=== PATIENT | female | born 1990 | race Two or more races ===

== ENCOUNTER 2021-10-18 18:44 | Emergency (ER) | payer SELFPAY ==
[2021-10-18 18:52] VITALS: BP 150/94; PULSE 87; RESP 18; TEMP 36.3; O2SAT 100
--- NOTE | 2021-10-18 19:34 | ED.HEATRA ---
HPI - Head Injury General Chief complaint: Head Injury Stated complaint: head injury Time Seen by Provider: 10/18/21 19:33 Source: patient Mode of arrival: ambulatory Limitations: no limitations History of Present Illness HPI Narrative: Patient is a 30-year-old female with a history of solitary kidney presenting to the emergency department for evaluation of fever. Patient reports that she had a door in the dorm she was living in fall onto her head 4 days ago. Patient states that she has mild headache pain on the top of her head. She denies vision changes, significant neck pain or stiffness. She reports nausea without vomiting. She denies cough, rhinorrhea, congestion, sore throat, ear pain. Patient states that she has felt warm when she has headache pain, but denies any recorded fever. Patient has been taking a medication called PREMA which is an [place] medication that she brought with her from [place] when she [facility] into the [facility]. She denies focal weakness or numbness. No difficulty with speech. She denies any back pain. Patient denies dysuria or hematuria. Related Data Allergies Allergy/AdvReac Type Severity Reaction Status Date / Time No Known Allergies Allergy Verified 10/18/21 19:23 Review of Systems Review of Systems: CONSTITUTIONAL: Reports subjective fever without chills EYES: Denies visual changes, redness, or discharge. ENT: Denies rhinorrhea, congestion, sore throat, or otalgia. CARDIOVASCULAR: Denies chest pain, palpitations, or edema. RESPIRATORY: Denies cough or dyspnea. GASTROINTESTINAL: Denies abdominal pain, reports nausea without vomiting GENITOURINARY: Denies dysuria or hematuria. SKIN: Denies rash or itching. MUSCULOSKELETAL: Denies back pain, joint pain, or myalgia. NEUROLOGIC: Reports headache without focal numbness, or weakness. 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 No hematoma, laceration. No ecchymosis. EYES: PERRLA and EOMI. ENT: Nares clear, no rhinorrhea or epistaxis. Mucous membranes moist. No midline tenderness, no step-offs or deformities. NECK: Supple. CHEST: No respiratory distress, breathing even and non labored HEART: Regular rate, sinus rhythm ABDOMEN:Non distended, non tender EXTREMITIES: Normal range of motion. No edema. SKIN: Warm, dry, no rash. NEURO:No focal deficits. Alert and oriented x3. Finger to nose intact bilaterally. EOMs intact without nystagmus. No facial droop/asymmetry noted bilaterally. Grimace intact. Intact sensation in face. Hearing intact bilaterally. Shoulder shrug intact. Strength 5/5 bilateral upper extremities. Strength 5/5 bilateral lower extremities. Reflexes 2+ patellar. Heel to louise intact bilaterally. Ambulatory exam deferred. Course Vital Signs Vital signs: Vital Signs Temperature 36.3 C L 10/18/21 18:52 Pulse Rate 87 10/18/21 18:52 Respiratory Rate 18 10/18/21 18:52 Blood Pressure 150/94 H 10/18/21 18:52 Pulse Oximetry 100 10/18/21 18:52 Oxygen Delivery Room Air 10/18/21 18:52 Temperature 36.3 C L 10/18/21 18:52 Pulse Rate 87 10/18/21 18:52 Respiratory Rate 18 10/18/21 18:52 Blood Pressure 150/94 H 10/18/21 18:52 Pulse Oximetry 100 10/18/21 18:52 Oxygen Delivery Room Air 10/18/21 19:31 MDM - Head Injury MDM Narrative Medical decision making narrative: Patient presented for evaluation of headache pain and reported subject
--- NOTE | 2021-10-18 20:30 | PC.NURSE ---
Patient refuses all care at this time. She is concerned about the billing and what the cost of imaging and lab may be. MD aware. Patient spoke with registration who provided her information for the financial counselor. Patient encouraged to stay for medical workup and evaluation but patient continues to refuse care. S/S warranting return to the ED discussed with patient. Verbal understanding given.
== END 2021-10-18 20:57 | disposition home or self-care (01) ==
LOC: ANHED 20:27
PROVIDERS: Emergency Provider Emergency Medicine
DX: R51.9 Headache, unspecified (principal); Q60.0 Renal agenesis, unilateral; Z87.442 Personal history of urinary calculi
CPT/HCPCS: 99283

== ENCOUNTER 2022-01-06 00:38 | Emergency (ER) | payer OTHER, SELFPAY ==
[2022-01-06 00:50] VITALS: BP 136/85; PULSE 79; RESP 18; TEMP 36.5; O2SAT 100
[2022-01-06 02:40] LABS: Appearance Urine Cloudy (Clear); Bilirubin Urine Negative (Negative); Blood Urine Negative (Negative); Color Urine Yellow (Yellow); Glucose Urine UA Negative (Negative); Ketones Urine Negative (Negative); Leukocyte Esterase Ur Negative LEU/UL (Negative); Nitrate Urine Negative (Negative); Protein Urine Negative (Negative); Specific Grav Ur >= 1.030 (1.001-1.035); Urobilinogen Urine 0.2 mg/dL (<2.0); pH Urine 5.5 (5.0-9.0)
[2022-01-06 02:59] LABS: Bacteria Urine Trace /hpf; Mucus Urine Few /lpf; RBC Urine 0-2 /hpf (0-2); Squamous Epithelial Cell Urine Many /hpf (Few); WBC Urine 0-3 /hpf
[2022-01-06 03:04] LABS: Add Urine Microscopic? NO
[2022-01-06 03:17] LABS: Influenza A QL RT-PCR Negative (Negative); Influenza B QL RT-PCR Negative (Negative); SARS-CoV-2 RNA PCR Negative
[2022-01-06 03:45] VITALS: BP 135/95; PULSE 48; RESP 16; O2SAT 96
--- NOTE | 2022-01-06 03:47 | ED.FEVER ---
HPI - Fever General Chief Complaint: Fever Stated Complaint: fever Time Seen by Provider: 01/06/22 03:27 History of Present Illness HPI Narrative: 31-year-old female presenting to the emergency department for evaluation of 1 week of intermittent headache, intermittent nausea and vomiting. Patient states she has also had a subjective fever. Patient denies any current abdominal pain but states she does still have some nausea. Patient declined medications for nausea control. Patient denies any pain with urination. Related Data Allergies Allergy/AdvReac Type Severity Reaction Status Date / Time No Known Allergies Allergy Verified 01/06/22 03:25 Review of Systems Review of Systems: CONSTITUTIONAL: See HPI EYES: Denies visual changes, redness, or discharge. ENT: Denies rhinorrhea, congestion, sore throat, or otalgia. CARDIOVASCULAR: Denies chest pain, palpitations, or edema. RESPIRATORY: Denies cough or dyspnea. GASTROINTESTINAL: See HPI GENITOURINARY: Denies dysuria or hematuria. SKIN: Denies rash or itching. MUSCULOSKELETAL: Denies back pain, joint pain, or myalgia. 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 HEAD: normocephalic, atraumatic. EYES: PERRLA/EOMI, conjunctivae clear. NOSE: Normal no drainage EARS:TMS clear with good light reflex. THROAT: Pharynx clear, no exudate. NECK: Supple. No adenopathy, no masses. RESPIRATORY: Airway patent, respirations nonlabored. Clear to auscultation bilaterally, no rales, rhonchi, wheezing. CARDIOVASCULAR: Regular rate and rhythm without murmurs rubs or gallops. ABDOMINAL: Soft, nontender, nondistended, normal bowel sounds MUSCULOSKELETAL: Moves all extremities. Strength/ROM intact, No edema, No calf tenderness. NEURO: Alert. Cranial nerves II through XII intact. Grossly intact SKIN: Warm, dry. 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 UA shows no evidence of infection. Patient was negative for flu and COVID. Patient bilirubin and the results of the work-up. All question concerns were addressed. Patient was encouraged to have close follow-up with her primary care physician. Vital Signs Vital signs: Vital Signs Temperature 97.7 F 01/06/22 00:50 Pulse Rate 79 01/06/22 00:50 Respiratory Rate 18 01/06/22 00:50 Blood Pressure 136/85 01/06/22 00:50 Pulse Oximetry 100 01/06/22 00:50 Oxygen Delivery Room Air 01/06/22 00:50 Temperature 97.7 F 01/06/22 00:50 Pulse Rate 64 01/06/22 04:30 Respiratory Rate 16 01/06/22 04:30 Blood Pressure 118/84 01/06/22 04:30 Pulse Oximetry 100 01/06/22 04:15 Oxygen Delivery Room Air 01/06/22 00:50 MDM - Fever Lab Data Attestation: I reviewed the patient's lab results. Result diagrams: 01/06/22 03:59 01/06/22 03:59 Labs: Lab Results 01/06/22 01/06/22 01/06/22 Range/Units 02:08 02:08 03:59 WBC 8.7 (4.5-10.0) K/mm3 RBC 4.55 (4.2-5.4) M/mm3 Hgb 13.1 (12.0-15.0) g/dL Hct 39.3 (37.0-47.0) % MCV 86.4 (80-100) fl MCH 28.8 (26-34) pg MCHC 33.3 (32-36) g/dl RDW 13.2 (11.5-14.5) % Plt Count 269 (150-375) k/mm3 MPV 10.1 (7.4-10.4) fl Immature Gran % (Auto) 0.2 (0-0.5) % Neut % (Auto) 71.2 (45.5-73.1) % Lymph % (Auto) 20.5 (18.3-44.2) % [place] % (Auto) 7.0 (2.6-8.5) % Eos % (Auto) 0.8 (0-4.4) % Baso % (Auto) 0.3 (0.2-1.2) % Lymph # (Aut
[2022-01-06 04:04] LABS: Basophils Percent Auto 0.3 % (0.2-1.2); Eosinophils Absolute Auto 0.1 K/mm3 (0-0.3); Eosinophils Percent Auto 0.8 % (0-4.4); Hematocrit 39.3 % (37.0-47.0); Hemoglobin 13.1 g/dL (12.0-15.0); Immature Granulocyte Absolute 0.02 K/mm3 (0.00-0.031); Immature Granulocyte Percent A 0.2 % (0-0.5); Lymphocytes Absolute Auto 1.79 K/mm3 (0.9-3.2); Lymphocytes Percent Auto 20.5 % (18.3-44.2); Mean Corpuscular HGB Conc 33.3 g/dl (32-36); Mean Corpuscular Hemoglobin 28.8 pg (26-34); Mean Corpuscular Volume 86.4 fl (80-100); Mean Platelet Volume 10.1 fl (7.4-10.4); Monocytes Absolute Auto 0.6 K/mm3 (0.1-0.6); Neutrophils Absolute Auto 6.2 K/mm3 (1.3-6.7); Neutrophils Percent Auto 71.2 % (45.5-73.1); Platelet Count Result 269 k/mm3 (150-375); Red Blood Count 4.55 M/mm3 (4.2-5.4); Red Cell Distribution Width 13.2 % (11.5-14.5); White Blood Count 8.7 K/mm3 (4.5-10.0)
[2022-01-06 04:14] LABS: Alanine Aminotransferase 23 U/L (6-35); Albumin Level 4.3 g/dL (3.5-5.1); Alkaline Phosphatase 69 U/L (38-126); Anion Gap 9 mmol/L (8-16); Aspartate Amino Transferase 20 U/L (14-36); Bilirubin,Total 0.5 mg/dL (0.2-1.3); Blood Urea Nitrogen 11 mg/dL (7-17); Calcium 8.9 mg/dL (8.4-10.2); Carbon Dioxide 25 mmol/L (22-30); Chloride 104 mmol/L (98-107); Estimated CRCL calculation 99 ml/min; Estimated Glomerular Filt Rate > 60; Glucose 117 mg/dL (65-110); Sodium 138 mmol/L (137-145)
[2022-01-06 04:15] VITALS: BP 121/84; PULSE 58; RESP 16; O2SAT 100
[2022-01-06 04:30] VITALS: BP 118/84; PULSE 64; RESP 16
== END 2022-01-06 04:38 | disposition home or self-care (01) ==
PROVIDERS: Emergency Provider Emergency Medicine
DX: B34.9 Viral infection, unspecified (principal); R51.9 Headache, unspecified; R11.0 Nausea; Z20.822 Contact with and (suspected) exposure to COVID-19; R82.998 Other abnormal findings in urine
CPT/HCPCS: 36415; 80053; 81003; 85025; 87086; 87636; 99283

== ENCOUNTER 2022-01-12 15:16 | Emergency (ER) | payer OTHER, SELFPAY ==
[2022-01-12 15:36] VITALS: BP 130/90; PULSE 89; RESP 16; TEMP 36.7; O2SAT 98
[2022-01-12 16:25] LABS: Influenza A QL RT-PCR Negative (Negative); Influenza B QL RT-PCR Negative (Negative); SARS-CoV-2 RNA PCR Negative
--- NOTE | 2022-01-12 19:40 | ED.GENADULT ---
HPI - General Adult General Chief complaint: Upper Respiratory Infection Stated complaint: FEVER,BODY ACHES Time Seen by Provider: 01/12/22 19:12 History of Present Illness HPI narrative: Patient is a 31-year-old female who presents the emergency department with chief complaint of fever body aches and generalized malaise. Patient states that for approximately 1 week she has been having body aches reports that she has had some headaches has had some nausea reports that the light bothers her eyes reports that she also developed a rash on her lower lip that she has never had before. The patient states that the rash is itchy and has a correlation of vesicles. Related Data Allergies Allergy/AdvReac Type Severity Reaction Status Date / Time No Known Allergies Allergy Verified 01/06/22 03:25 Review of Systems Review of Systems: A 10 system review of systems was completed on the patient and is negative except for what is stated in the HPI. Nursing and ancillary documentation was reviewed. 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 HEAD: Normocephalic, atraumatic. EYES: PERRLA and EOMI. ENT: Nares clear, no rhinorrhea or epistaxis. Mucous membranes moist. There is a vesicular rash present in the left lower NECK: Supple. No meningeal signs, full range of motion of neck without difficulty CHEST: Clear to auscultation. No respiratory distress. HEART: Regular rate and rhythm. No murmur heard. Normal peripheral pulses. ABDOMEN: Soft, nontender, nondistended, normal active bowel sounds. EXTREMITIES: Normal range of motion. No edema. SKIN: Warm, dry, no rash. NEURO: No focal deficits. Alert and oriented x3. PSYCH: Normal mood and affect. Course Vital Signs Vital signs: Vital Signs Temperature 36.7 C 01/12/22 15:36 Pulse Rate 89 01/12/22 15:36 Respiratory Rate 16 11/17/22 15:36 Blood Pressure 130/90 01/12/22 15:36 Pulse Oximetry 98 01/12/22 15:36 Temperature 36.7 C 01/12/22 15:36 Pulse Rate 89 01/12/22 15:36 Respiratory Rate 16 01/12/22 15:36 Blood Pressure 130/90 01/12/22 15:36 Pulse Oximetry 98 01/12/22 15:36 Medical Decision Making Vital Signs Vital Signs: Vital Signs Temperature 36.7 C 01/12/22 15:36 Pulse Rate 89 01/12/22 15:36 Respiratory Rate 16 01/12/22 15:36 Blood Pressure 130/90 01/12/22 15:36 Pulse Oximetry 98 01/12/22 15:36 Temperature 36.7 C 01/12/22 15:36 Pulse Rate 89 01/12/22 15:36 Respiratory Rate 16 01/12/22 15:36 Blood Pressure 130/90 01/12/22 15:36 Pulse Oximetry 98 01/12/22 15:36 Lab Data Labs: Lab Results 01/12/22 01/12/22 Range/Units 15:44 19:27 Urine Color Yellow (Yellow) Urine Appearance Slightly cloudy (Clear) Urine pH 6.0 (5.0-9.0) Ur Specific [place] 1.025 (1.001-1.035) Urine Protein Trace (Negative) mg/dL Urine Glucose (UA) Negative (Negative) mg/dL Urine Ketones Trace (Negative) mg/dL Ur Blood (Man) Negative (Negative) Urine Nitrate Negative (Negative) Urine Bilirubin 1+ H (Negative) Urine Urobilinogen 0.2 (<2.0) mg/dL Leukocyte Esterase Rfl Negative (Negative) CATRINA/UL Urine RBC 6-10 H (0-2) /hpf Urine WBC 4-6 H /hpf Ur Squamous Epith Cells Many H (Few) /hpf Urine Bacteria Trace /hpf Urine Mucus Rare /lpf Influenza A (RT-PCR) Negative (Negative) Influenza B (RT-PCR) Negative (Negative) SARS-CoV-2 RNA (RT-P
[2022-01-12 19:42] LABS: Appearance Urine Slightly Cloudy (Clear); Bilirubin Urine 1+ (Negative); Blood Urine Negative (Negative); Color Urine Yellow (Yellow); Glucose Urine UA Negative (Negative); Ketones Urine Trace mg/dL (Negative); Leukocyte Esterase Ur Negative LEU/UL (Negative); Nitrate Urine Negative (Negative); Protein Urine Trace mg/dL (Negative); Specific Grav Ur 1.025 (1.001-1.035); Urobilinogen Urine 0.2 mg/dL (<2.0)
[2022-01-12] MEDS: KETOROLAC 30 MG/ML VIAL (*BKC) IM (19:45)
[2022-01-12] MEDS: diphenhydrAMINE HCl CAP 25 MG CAPSULE PO (19:45)
[2022-01-12] MEDS: METOCLOPRAMIDE HCL 10 MG TABLET PO (19:45)
[2022-01-12 19:52] LABS: Bacteria Urine Trace /hpf; Mucus Urine Rare /lpf; Squamous Epithelial Cell Urine Many /hpf (Few)
[2022-01-12 19:54] LABS: Add Urine Microscopic? YES
[2022-01-12] MEDS: CEPHALEXIN 500 MG CAPSULE PO (20:19)
[2022-01-12] MEDS: valACYclovir HCL 500 MG TABLET 1000 MG PO (20:19)
[2022-01-12 20:23] VITALS: BP 141/92; PULSE 77; RESP 16; O2SAT 100
== END 2022-01-12 20:23 | disposition home or self-care (01) ==
PROVIDERS: Emergency Medicine; Emergency Provider Emergency Medicine
DX: B34.9 Viral infection, unspecified (principal); N39.0 Urinary tract infection, site not specified; B00.1 Herpesviral vesicular dermatitis; Z20.822 Contact with and (suspected) exposure to COVID-19
CPT/HCPCS: 81001; 81025; 87636; 96372; 99283; A9270; J1885

== ENCOUNTER 2022-01-23 06:41 | Emergency (ER) | payer OTHER, SELFPAY ==
--- NOTE | ~2022-01-23 | CT_ITS ---
EXAMINATION: CT abdomen pelvis w con DATE: 01/23/2022 09:13 INDICATION: Right abdominal pain. Right flank pain. TECHNIQUE: Computed tomography (CT) of the abdomen and pelvis was performed with 100 mL Omnipaque 350 intravenous contrast. Automated exposure control and iterative reconstruction technique were employe d. The dose-length product was 761.10 mGy-cm. COMPARISON: None. FINDINGS: The visualized portions of the lung bases are clear without pneumonia or pleural effusion. The heart size is normal. No pericardial effusion. The liver and spleen are normal. There are changes of cholecystectomy. The pancreas and adrenal glands and right kidney are normal. Left kidney is abse nt. The appendix is normal. There are no dilated loops of bowel. There are no pathologically enlarged lymph nodes. There is no free intraperitoneal fluid. There is mild lumbar spondylosis. IMPRESSION: 1. No etiology for the patient's symptoms. Reviewed, dictated and finalized at location A. CTOR OF PROVIDER RELATIONS
[2022-01-23 06:48] VITALS: BP 127/90; PULSE 79; RESP 18; TEMP 36.6; O2SAT 100
[2022-01-23] MEDS: SODIUM CHLORIDE 0.9% IV 1,000 ML 150 ML IV CONT (08:34)
[2022-01-23] MEDS: MORPHINE SULFATE (*CRX) 4 MG/ML INJ IV PUSH (08:35)
[2022-01-23 08:40] LABS: Basophils Percent Auto 0.3 % (0.2-1.2); Eosinophils Absolute Auto 0.1 K/mm3 (0-0.3); Eosinophils Percent Auto 0.7 % (0-4.4); Hematocrit 39.1 % (37.0-47.0); Hemoglobin 13.1 g/dL (12.0-15.0); Immature Granulocyte Absolute 0.03 K/mm3 (0.00-0.031); Immature Granulocyte Percent A 0.3 % (0-0.5); Lymphocytes Absolute Auto 1.61 K/mm3 (0.9-3.2); Lymphocytes Percent Auto 16.4 % (18.3-44.2); Mean Corpuscular HGB Conc 33.5 g/dl (32-36); Mean Corpuscular Hemoglobin 29.2 pg (26-34); Mean Corpuscular Volume 87.3 fl (80-100); Mean Platelet Volume 10.3 fl (7.4-10.4); Monocytes Absolute Auto 0.6 K/mm3 (0.1-0.6); Neutrophils Absolute Auto 7.5 K/mm3 (1.3-6.7); Neutrophils Percent Auto 76.3 % (45.5-73.1); Platelet Count Result 271 k/mm3 (150-375); Red Blood Count 4.48 M/mm3 (4.2-5.4); Red Cell Distribution Width 12.9 % (11.5-14.5); White Blood Count 9.8 K/mm3 (4.5-10.0)
[2022-01-23 08:41] LABS: Appearance Urine Clear (Clear); Bilirubin Urine Negative (Negative); Blood Urine 2+ (Negative); Color Urine Yellow (Yellow); Glucose Urine UA Negative (Negative); Ketones Urine Negative (Negative); Leukocyte Esterase Ur Negative LEU/UL (Negative); Nitrate Urine Negative (Negative); Protein Urine Negative (Negative); Specific Grav Ur >= 1.030 (1.001-1.035); Urobilinogen Urine 0.2 mg/dL (<2.0); pH Urine 5.5 (5.0-9.0)
[2022-01-23 08:45] LABS: Alanine Aminotransferase 21 U/L (6-35); Alkaline Phosphatase 78 U/L (38-126); Anion Gap 11 mmol/L (8-16); Aspartate Amino Transferase 32 U/L (14-36); Bilirubin,Total 0.3 mg/dL (0.2-1.3); Blood Urea Nitrogen 10 mg/dL (7-17); Calcium 8.8 mg/dL (8.4-10.2); Carbon Dioxide 23 mmol/L (22-30); Chloride 106 mmol/L (98-107); Estimated Glomerular Filt Rate > 60; Glucose 101 mg/dL (65-110); Lipase 106 U/L (23-300); Mucus Urine Rare /lpf; Potassium 4.4 mmol/L (3.4-5.0); Sodium 140 mmol/L (137-145); Squamous Epithelial Cell Urine Many /hpf (Few)
[2022-01-23 08:47] LABS: Add Urine Microscopic? YES
[2022-01-23 09:55] VITALS: BP 122/83; PULSE 79; RESP 14; O2SAT 99
[2022-01-23] MEDS: DICYCLOMINE HCL INJ 20 MG/2 ML VIAL IM (10:06)
--- NOTE | 2022-01-23 11:02 | ED.ABDPAIN ---
HPI - Abdominal Pain General Chief Complaint: Abdominal Pain Stated Complaint: Flank pain, right Time Seen by Provider: 01/23/22 07:38 Source: patient and family Mode of arrival: ambulatory Limitations: no limitations History of Present Illness HPI narrative: 31-year-old with a history of cholecystectomy , solitary kidney here with complaints of right-sided abdominal pain, headache on and off for past few days. Patient states that she was seen in the emergency room on January 06 for the same and was diagnosed with UTI and was prescribed Keflex and valacyclovir. However patient has not been taking the medication as she thinks the dosage was too much for her kidneys. She denies any fever or chills no history of nausea or vomiting. MD elicited complaint: abdominal pain Pertinent past history: none Onset (ago): day(s) (1) Pain Consistency: constant Location: RUQ and RLQ Severity: moderate Quality: aching Radiation: none Migration to: no migration Exacerbating factors: nothing Relieving factors: nothing Associated symptoms: denies other symptoms Related Data Allergies Allergy/AdvReac Type Severity Reaction Status Date / Time No Known Allergies Allergy Verified 01/06/22 03:25 Review of Systems Review of Systems: All systems reviewed & are unremarkable except as noted in HPI and below Constitutional: Constitutional: Reports no additional constitutional complaints Eyes: Eyes: Reports no additional eye complaints ENT: Reports system reviewed and no additional complaints, except as documented Cardiovascular: Cardiovascular: Reports no additional cardiovascular complaints Respiratory: Respiratory: Reports no additional respiratory complaints Gastrointestinal: Gastrointestinal: Reports as per HPI Genitourinary: Genitourinary: Reports no additional female genitourinary complaints Musculoskeletal: Musculoskeletal: Reports no additional musculoskeletal complaints Integumentary/Breasts: Skin/Breast: Reports system reviewed and no additional complaints, except as docu Neurologic: Reports system reviewed and no additional complaints, except as documented PMFSH Surgical History Surgical History H/O lithotripsy Social History Social History Smoking status: Never smoker Alcohol intake: never Substance use: never Additional occupation/education comments: 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 HEAD: Normocephalic, atraumatic. EYES: PERRLA and EOMI.. NECK: Supple. CHEST: Clear to auscultation. No respiratory distress. HEART: Regular rate and rhythm. No murmur heard. Normal peripheral pulses. ABDOMEN: Soft, nontender, nondistended, normal active bowel sounds. EXTREMITIES: Normal range of motion. No edema. SKIN: Warm, dry, no rash. NEURO: No focal deficits. Alert and oriented x3. PSYCH: Normal mood and affect. Course Course Emergency Course: Pain much improved with IV morphine informed patient and family about her lab work, CT findings was just about the discharge she states she is cramping again on the right side I did give her IM Bentyl which seemed to help her pain. Vital Signs Vital signs: Vital Signs Temperature 36.6 C 01/23/22 06:48 Pulse Rate 79 01/23/22 06:48 Respiratory Rate 18 01/23/22 06:48 Blood Pressure 127/90 01/23/22 06:48 Pulse Oximetry 100 01/23/22 06:48 Oxygen Delivery Room Air 01/23/22 06:48 Temperature 36.6 C 01/23/22 06:48 Pulse Rate 79 01/23/22 09:55 Respiratory Rate 14 01/23/22 09:55 Blood Pressure 122/83 01/23/22 09:55 Pulse Oximetry 99 01/23/22 09:55 Oxygen Delivery Room Air 01/23/22 06:48 MDM - Abdominal Pain MDM Narrative Medical decision making
== END 2022-01-23 11:35 | disposition home or self-care (01) ==
PROVIDERS: Emergency Provider Family Medicine
DX: R10.9 Unspecified abdominal pain (principal); Q60.0 Renal agenesis, unilateral
CPT/HCPCS: 36415; 74177; 80053; 81001; 81025; 83690; 85025; 96361; 96372; 96374; 99284; J0500; J2270; J7030; Q9967